=== PATIENT | male | born 1990 | race Hispanic/Latino ===

== ENCOUNTER 2021-01-31 18:36 | Emergency (ER) | payer SELFPAY ==
[2021-01-31] MEDS ORDERED: Dexamethasone 10 MG/ML VIAL ONE (21:39)
[2021-01-31] MEDS ORDERED: hydrOXYzine 25 MG TAB ONE (21:39)
== END 2021-01-31 22:00 | disposition home or self-care (01) ==
LOC: ERS 18:36
DX: L25.5 Unspecified contact dermatitis due to plants, except food (principal)
CPT/HCPCS: 99283; J1100

== ENCOUNTER 2021-02-05 13:30 | Emergency (ER) | payer SELFPAY ==
[2021-02-05] MEDS ORDERED: predniSONE 20 MG TAB ONE (13:41)
== END 2021-02-05 14:01 | disposition home or self-care (01) ==
LOC: ERS 13:30
DX: L25.9 Unspecified contact dermatitis, unspecified cause (principal)
CPT/HCPCS: 99282; J7512